=== PATIENT | female | born 1980 | race Caucasian/White ===

== ENCOUNTER → 2021-04-10 13:12 | Outpatient (CLI) | payer MEDICARE, SELFPAY ==
--- NOTE | 2021-04-10 13:12 | CT_ITS ---
PROCEDURE: CT HEAD/BRAIN W CON CLINICAL INDICATION: headache , History of brain tumor with surgery COMPARISON: No exams were available for comparison TECHNIQUE: IV Contrast: 100ML Isovue 370 Axial images obtained. All CT scans at the facility use one or more dose reduction, viz: automated exposure control, ma/kV adjustment per patient size (including targeted exams where dose is matched to indication, i.e. head), or iterative reconstruction technique. FINDINGS: There are no previous exams available at this institution for comparison. There has been a prior frontal craniotomy with craniotomy defect centrally and on the left. The anterior horn of the left lateral ventricle is slightly enlarged which may be postsurgical in nature with periventricular encephalomalacia change. Correlation with old studies needed to determine that this is actually a chronic finding. No midline shift, mass effect, intracranial hemorrhage, or enhancing lesions are evident. There is a small amount fluid within the left mastoid sinus and mild mucosal thickening of the ethmoid sinuses. IMPRESSION: Postsurgical changes from prior frontal craniotomy. Enlarged anterior horn of the left lateral ventricle which may be postsurgical with encephalomalacia change in that region. Please correlate with old exams. No acute finding. Dictated by: Jose Batista MD 04/10/2021 15:08 Jose Batista MD in [place] 04/10/2021 15:08
--- NOTE | 2021-04-10 14:41 | CA_ITS ---
APPROVED REPORT EXAM: Comprehensive 2D, Doppler, and color-flow Echocardiogram Hand Shaker: Ashley Horvath, RT(R) Ht: 5 ft 2 in Wt: 130lbs BSA: 1.59 BP: 192/88 mmHg Indications: murmur, smoker, HTN 2D Dimensions LVOT 2.03 cm (M/F) 1.5-2.5 LVEF (Flores's) 46.20 % F: 54 - 74 LV Volume 104.20 mL F: 46 - 106 LV Volume Index 65.53 mL/m2 F: 29 - 61 M-Mode Dimensions RVDd 2.38 cm (0.9-2.6) LA Diam 2.66 cm (1.9-4.0) LVDd 4.70 cm (3.5-5.7) Ao Diam 2.66 cm (2.0-3.7) LVDs 3.52 cm (3.5-5.7) IVSd 0.80 cm (0.6-1.1) PWd 0.80 cm (0.6-1.1) EF (Teich) 49.60% FS 25.10% EDV (Teich) 102.40 mL ESV (Teich) 51.60 mL LV Diastology E Decel Time 227.00 (160-240 msec) E/A Ratio 1.5 MED E' 7.70 (< 7 cm/sec) E'/MED E' Ratio 13.34 (>14) LAT E' 8.40 (<10 cm/sec) E/LAT E' Ratio 12.23 (>14) Aortic Valve LVOT Max 132.00 (70-110 cm/s) LVOT VTI 22.91 cm AoV Peak Ramon. 196.00 (50-130 cm/s) AO Peak GR. 15.30 mmHg AO Mean GR. 7.50 (<5 mmHg) AO VTI 32.94 (18-25 cm) DULCE (VTI) 2.25 (2.5-4.5 cm2) Mitral Valve MV E Max Ramon. 103.00 (40-130 cm/s) MV A Velocity 69.00 (40-130 cm/s) E/A Ratio 1.49 MV Decel. Time 227.00 (160-240 ms) MV PHT 66.00 ms Left Ventricle Left atrium is mildly enlarged, left ventricle is normal size, mild concentric left ventricular hypertrophy, visually estimated ejection fraction 55% with no regional wall motion abnormality, diastolic parameters are inconclusive in the study. Right Ventricle Right atrium and right ventricle are normal size and contractility. Aortic Valve Aortic valve is thickened and calcified, without Doppler evidence of aortic stenosis, there is trace aortic insufficiency. Morphology of the aortic valve is not well visualized. Mitral Valve Mitral valve is grossly normal, there is trace mitral regurgitation. Tricuspid Valve Tricuspid valve grossly normal, there is trace tricuspid regurgitation. Pulmonic Valve Pulmonic valve is poorly visualized. Great Vessels Aortic root is normal size. Pericardium No significant pericardial effusion noted. Conclusion 1. Normal left ventricular size, mild concentric left ventricular hypertrophy, visually estimated ejection fraction 55% with no regional wall motion abnormality, diastolic parameters are inconclusive in the study. 2. Thickened and calcified aortic valve, morphology of the aortic valve is not well visualized in the study, Doppler is not indicated above any significant aortic stenosis, there is trace aortic insufficiency. 3. Trace mitral and tricuspid regurgitation. 4. No significant pericardial effusion noted. Electronically signed by : Damian Gross, 04/10/2021 15:28:19
== END ==
PROVIDERS: PCP Family Medicine; Visit Provider Family Medicine
DX: G43.509 Persistent migraine aura without cerebral infarction, not intractable, without status migrainosus (principal); R01.1 Cardiac murmur, unspecified
CPT/HCPCS: 70460; 93306; Q9967

== ENCOUNTER → 2022-01-26 13:27 | Outpatient (CLI) | payer MEDICARE, SELFPAY ==
--- NOTE | 2022-01-26 13:36 | CT_ITS ---
FINAL REPORT TECHNIQUE: After the administration of IV contrast, axial images through the head/brain was performed by computed tomography. Precontrast images were also obtained and reviewed. This study was performed with techniques to keep radiation doses as low as reasonably achievable (ALARA). Individualized dose reduction techniques using automated exposure control or adjustment of mA and/or kV according to the patient's size were employed. CLINICAL HISTORY: headache after brain tumor, brain surgery 2002. COMPARISON: 04/10/2021 FINDINGS: There is left frontal craniotomy. There is left ex vacuo dilatation of the frontal horn of the left lateral ventricle. There is encephalomalacia involving the medial left frontal lobe which is stable. There is abnormal decreased attenuation adjacent to the posterior horn of the right lateral ventricle. This is more evident since the previous. Finding is well-seen on image #146. There is no definite abnormal enhancement. There is a small lacunar infarct in the head of the right caudate. IMPRESSION: Stable encephalomalacia and ex vacuo dilatation in the left frontal lobe. 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 Encephalomalacia adjacent to the posterior horn of the right lateral ventricle, more evident than previous. Reviewed, Interpreted and Dictated by Kendrick Andrews MD Transcribed by Amy Verde Authenticated by Kendirck Andrews MD on 01/26/2022 04:01:38 PM [facility]
== END ==
PROVIDERS: PCP Family Medicine; Visit Provider Family Medicine
DX: R51.9 Headache, unspecified (principal)
CPT/HCPCS: 70470; Q9967

== ENCOUNTER → 2022-06-01 13:24 | Outpatient (CLI) | payer MEDICARE, SELFPAY ==
--- NOTE | 2022-06-01 13:32 | XR_ITS ---
FINAL REPORT CLINICAL HISTORY: shoulder pain FINDINGS: Three views of the right shoulder were obtained. There is no prior exam for comparison. There is no fracture or dislocation. The joint space is preserved. Soft tissues are normal. IMPRESSION: No acute osseous abnormality of the right shoulder. Reviewed, Interpreted and Dictated by Prisca Manuel MD Transcribed by Olinda Guzmán Authenticated and [facility]
== END ==
PROVIDERS: PCP Family Medicine; Visit Provider Orthopaedic Surgery
DX: M25.511 Pain in right shoulder (principal)
CPT/HCPCS: 73030

== ENCOUNTER → 2022-06-10 09:44 | Outpatient (CLI) | payer MEDICARE, SELFPAY ==
--- NOTE | 2022-06-10 09:44 | MR_ITS ---
FINAL REPORT CLINICAL HISTORY: shoulder pain right shoulder zhagn limitied rom weakness in arm symptoms x years but goten worse FINDINGS: Multiplanar MR imaging of the right shoulder was performed without contrast. The tendons of the rotator cuff are intact without evidence of rotator cuff tear. The a.c. joint is intact. A small amount of fluid is seen in the subacromial/subdeltoid bursa. The glenoid labrum is intact. The long head of the biceps tendon is intact. Small glenohumeral joint effusion is seen. There is no evidence of fracture or dislocation. The musculature is intact. There is no evidence of soft tissue mass. IMPRESSION: No evidence of rotator cuff or labral tear. Reviewed, Interpreted and Dictated by Claudio Saleem III, MD Transcribed by Amy Verde Authenticated and [facility]
== END ==
PROVIDERS: PCP Family Medicine; Visit Provider Orthopaedic Surgery
DX: M75.51 Bursitis of right shoulder (principal)
CPT/HCPCS: 73221

== ENCOUNTER → 2022-09-09 15:55 | Outpatient (CLI) | payer MEDICARE, SELFPAY ==
--- NOTE | 2022-09-09 16:04 | MM_ITS ---
PROCEDURE INFORMATION: Exam: MG Bilateral Screening 3D Mammography Exam date and time: 09/09/2022 4:02 PM Age: 41 years old Clinical indication: Screening examination; Additional info: Screening for breast cancer TECHNIQUE: Imaging protocol: Bilateral Screening tomosynthesis and 2D mammography including computer-aided detection (CAD) when performed. COMPARISON: No relevant prior studies available. FINDINGS: MAMMOGRAPHY: Breast composition: The breasts are heterogeneously dense, which may obscure small masses. Mass: No suspicious masses. Architectural distortion: No suspicious distortion. Calcifications: No suspicious calcifications. Asymmetric density: None. Skin thickening: None. Axillary adenopathy: None. IMPRESSION: No mammographic evidence of malignancy. Annual screening is recommended unless otherwise clinically indicated. ASSESSMENT: BI-RADS Category 1: Negative
== END ==
PROVIDERS: PCP Family Medicine; Visit Provider Family Medicine
DX: Z12.31 Encounter for screening mammogram for malignant neoplasm of breast (principal)
CPT/HCPCS: 77063; 77067

== ENCOUNTER → 2023-10-18 09:32 | Outpatient (CLI) | payer MEDICARE, MEDICAID, SELFPAY ==
--- NOTE | 2023-10-18 09:33 | CT_ITS ---
FINAL REPORT TECHNIQUE: Axial imaging of the head was obtained without contrast. This study was performed with techniques to keep radiation doses as low as reasonably achievable, (ALARA). Individualized dose reduction techniques using automated exposure control or adjustment of mA and/or kV according to the patient''s size were employed. CLINICAL HISTORY: Headache after craniotomy COMPARISON: January 2022 FINDINGS: There is no evidence of hemorrhage. No masses are identified. No extra-axial fluid is seen. There is mucoperiosteal thickening in the left maxillary sinus. There is deformity of the left lateral ventricle that is probably postoperative. There is an old lacunar infarct in the head of the right caudate. There is postoperative change from a midline and left frontal craniotomy. IMPRESSION: No acute intracranial abnormality. Reviewed, Interpreted and Dictated by Kendrick Andrews MD Transcribed by Leandro Alfaro Authenticated and [facility]
== END ==
LOC: RAD 09:33
PROVIDERS: PCP Family Medicine; Visit Provider Family Medicine
DX: R51.9 Headache, unspecified (principal); Z98.890 Other specified postprocedural states
CPT/HCPCS: 70450

== ENCOUNTER 2024-01-02 11:22 | Emergency (ER) | payer MEDICARE, MEDICAID, SELFPAY ==
--- NOTE | 2024-01-02 11:45 | XR_ITS ---
FINAL REPORT CLINICAL HISTORY: FALL COMPARISON: None FINDINGS: AP, lateral and oblique views of the right knee were obtained. There is no prior exam for comparison. There is no acute osseous abnormality of the right knee. The joint space is preserved. The soft tissues are normal. There is no joint effusion. IMPRESSION: No acute osseous abnormality of the right knee. Reviewed, Interpreted and Dictated by Prisca Manuel MD Transcribed by Moni Foster Authenticated and [facility]
--- NOTE | 2024-01-02 11:45 | XR_ITS ---
FINAL REPORT CLINICAL HISTORY: FALL COMPARISON: None FINDINGS: AP, oblique, and lateral views of the right ankle were obtained. There is no prior exam for comparison. There is no fracture or dislocation. There is a well-corticated calcific density located at the distal tip of the lateral malleolus, favor chronic etiology. The ankle mortise is intact. Soft tissues are normal. IMPRESSION: No acute osseous abnormality of the right ankle. Reviewed, Interpreted and Dictated by Prisca Manuel MD Transcribed by Moni Foster Authenticated and [facility]
[2024-01-02 12:50] VITALS: BP 134/95; PULSE 79; RESP 20; TEMP 36.6; O2SAT 98; BMI 19.2
--- NOTE | 2024-01-02 13:35 | ED_ITS ---
Discharge Plan Disposition Patient Disposition: Home, Self-Care Condition: Good Prescriptions Prescriptions: No Action amlodipine [Norvasc] 10 mg tablet 10 mg PO DAILY Qty: 90 3RF benazepril 40 mg tablet 40 mg PO DAILY Qty: 90 3RF hydrochlorothiazide 12.5 mg tablet 12.5 mg PO DAILY Qty: 90 3RF Referrals Follow up/Referrals: Gary Renteria DO [Staff Physician] - See instructions Elias Wilson MD [Primary Care Provider] - See instructions Activity Restrictions/Add. Instructions Additional Instructions/Restrictions: *weight bearing as tolerated *RICE, Rest the extremity, Ice 15-20 minutes 3-4 times daily, Compress- wear the kodi wrap as discussed as much as possible to help reduce swelling and pain, E levate the extremity when at rest *Knee immobilizer and kodi wrap is for support and help control swelling, use it except in the shower. Be sure that is not to tight but not to loose either *Elevate when resting? *Ibuprofen 600-800mg every 6-8 hours as needed for pain an inflammation. If need something more can take Tylenol in between doses of Ibuprofen to help Follow up with your Family Doctor and Orthopedics for further evaluation and testing Clinical Impressions Clinical Impression: Fall Qualifiers: Encounter type: initial encounter Qualified Code(s): W19.XXXA - Unspecified fall, initial encounter Instructions Patient Instructions: How to Use Crutches, How To Perform RICE (Rest, Ice, Compress, Elevate), How to Use a Knee Immobilizer Discharge ED Provider: Sade Flores [facility] HPI General Stated complaint: passed out 12/31/23, inj rt ankle and knee Mode of Arrival: Ambulatory Source of Information: Patient Limitations: No Limitations Time Seen by Provider: 01/02/24 13:35 Description of Symptoms (Recalled from Triage Doc. by RN): PATIENT STATES ON TUESDAY SHE BLACKED OUT AND FELL ONTO RIGHT LEG. C/O PAIN AND SWELLING TO RIGHT ANKLE AND RIGHT KNEE PAIN WITH WEIGHT BEARING HEENT Symptoms (Recalled from RN notes): No Resp Symptoms (Recalled from RN notes): No Skin Symptoms (Recalled from RN notes): No MS Symptoms (Recalled from RN notes): Yes Functional Status (Recalled from RN notes): WNL History of Present Illness Provider Complaint: Patient states that she has issues with her sugar dropping at times and on Tuesday she felt like her blood sugar was getting low at home and was trying to get to the kitchen to get some peanut butter when she fell in the floor on her right side States since then she has been having swelling in her right ankle and pain in the back of her right knee and feels like it is going to buckle on her so today when she was still having pain in her ankle with weight bearing she came in Related Data Previous Rx's Medication Instructions Recorded amlodipine 10 mg tablet (Norvasc) 10 mg PO DAILY #90 tabs 12/16/23 benazepril 40 mg tablet 40 mg PO DAILY #90 tabs 12/16/23 hydrochlorothiazide 12.5 mg tablet 12.5 mg PO DAILY #90 tabs 12/16/23 Allergies Allergy/AdvReac Type Severity Reaction Status Date / Time No Known Allergies Allergy Verified 12/16/23 11:13 Worker's Comp Is this a Worker's Comp case?: No [facility] Disclaimer: The information contained in this section may have been updated after the patient was seen, as this information can be updated by other users. Medical History History of brain tumor Migraines Surgical History H/O knee surgery H/O: hysterectomy Hx of appendectomy Hx of brain surgery Social History Smoking Status: Current every day smoker alcohol intake: never substance use type: denies use current occupational status: disabled Travel in the last 8 weeks: None ROS Obtained: Yes All systems reviewed & no additional complaints except as documented and Yes Systems reviewed as appropriate & no additional complaints except as documented Constitutional Constitutional: Reports system reviewed and no additional complaints, except as documented and Reports as per HPI ENT Ears, Nose, Mouth, and Throat: Reports system reviewed and no additional complaints, except as documented and Reports as per HPI Cardiovascular Cardiovascular: Reports system reviewed and no additional complaints, except as documented and Reports as per HPI Gastrointestinal Gastrointestingal: Reports system reviewed and no additional complaints, except as documented and as per HPI Musculoskeletal Musculoskeletal: Reports system reviewed and no additional complaints, except as documented, Reports as per HPI and Reports other Comments: Pain in right knee and swelling and pain in right ankle Physical Exam General General appearance: alert and in no apparent distress ENT ENT exam: Present mucous membranes moist Respiratory Respiratory exam: Present normal lung sounds bilaterally; Absent respiratory distress or wheezes Cardiovascular Cardiovascular exam: Present regular rate, normal rhythm and normal heart sounds Expanded Lower Extremity Exam Right: Knee exam: Present tenderness; Absent swelling, dislocation or erythema Lower leg exam: Present normal inspection Ankle exam: Present swelling and ecchymosis Foot/toe exam: Present normal inspection Gait: observed and limited by pain Neurological Exam Neurological exam: Present alert, oriented X3 and normal gait Medical Decision Making Zeke Inquiry Pt receiving controlled substance: No Zeke was queried for this patient: No Vital Signs: 01/02/24 12:50 Temperature 97.8 F Temperature Source Oral Pulse Rate [Left Brachial] 79 Respiratory Rate 20 Blood Pressure [Left Arm] 134/95 H Blood Pressure Mean [Left Arm] 108 Blood Pressure Source [Left Arm] Automatic Cuff Blood Pressure Position [Left Arm] Sitting 02 Sat by Pulse Oximetry 98 Oxygen Delivery Method Room Air Orders (Tests/Meds): ORDERS Category Date Time Status XR ankle RT min 3V Stat Exams 01/02/24 11:45 Taken XR knee RT 3V Stat Exams 01/02/24 11:45 Taken Radiology Data #1: Image(s): Knee Image Reviewed: Yes I have reviewed radiologist's interpretation IMPRESSION: No acute osseous abnormality of the right knee. #2: Image(s): Ankle Image Reviewed: Yes I have reviewed radiologist's interpretation IMPRESSION: No acute osseous abnormality of the right ankle. Medical Decision Narrative: discussed transfer to the ED due to blacking out on Tuesday and patient declined Procedures Orthopedic Splinting/Casting Injury #1: Side: right Lower Extremity Injury Location: knee and ankle Lower Extremity Immobilizer: knee immobilizer and Kodi wrap Other Orthopedic Equipment: crutches Post Cast/Splinting Neuro Status: intact and no change Post Cast/Splinting Vasc Status: intact and no change
[2024-01-02 14:01] VITALS: BP 134/95; PULSE 79; RESP 20; TEMP 36.6; O2SAT 98
== END 2024-01-02 14:05 | disposition home or self-care (01) ==
PROVIDERS: Emergency Provider Nurse Practitioner; PCP Family Medicine
DX: M25.561 Pain in right knee (principal); M25.571 Pain in right ankle and joints of right foot; W19.XXXA Unspecified fall, initial encounter
CPT/HCPCS: 73562; 73610; 99204; 99212; G0463